=== PATIENT | female | born 1995 | race Caucasian/White ===

== ENCOUNTER 2021-12-09 09:00 | Day surgery (SDC) | payer OTHER ==
[~2021-12-09] VITALS: Ht 167.6 cm; Wt 53.5 kg
[2021-12-09] MEDS ORDERED: MIDAZOLAM 5 MG/5 ML VIAL ONE (13:03)
[2021-12-09] MEDS ORDERED: fentaNYL citrate 0.05 MG/ML VIAL ONE (13:03)
[2021-12-09] MEDS ORDERED: fentaNYL citrate 0.05 MG/ML VIAL IVP ONE (13:35)
[2021-12-09] MEDS ORDERED: MIDAZOLAM 2 MG/2 ML VIAL IVP ONE (13:35)
== END 2021-12-09 14:18 | disposition home or self-care (01) ==
LOC: MDS 09:00 → MMU 09:03 → MDS 14:18
PROVIDERS: ATTEND Internal Medicine Gastroenterology
DX: R13.10 Dysphagia, unspecified (principal); K20.0 Eosinophilic esophagitis
CPT/HCPCS: 43239; 81025; J2250; J3010